=== PATIENT | male | born 1980 | race Caucasian/White ===

== ENCOUNTER 2019-05-10 10:25 | Emergency (ER) | payer OTHER ==
[~2019-05-10] VITALS: Ht 165.1 cm; Wt 73.0 kg
== END 2019-05-10 13:36 | disposition home or self-care (01) ==
LOC: ER 10:25
DX: J11.1 Influenza due to unidentified influenza virus with other respiratory manifestations (principal); H66.93 Otitis media, unspecified, bilateral